=== PATIENT | female | born 1995 | race Caucasian/White ===

== ENCOUNTER 2018-12-19 20:40 | Emergency (ER) | payer BC ==
[~2018-12-19] VITALS: Ht 157.5 cm; Wt 58.5 kg
[2018-12-20] MEDS ORDERED: KETO10TA2 PO (02:37)
== END 2018-12-20 03:09 | disposition home or self-care (01) ==
LOC: ER 20:40
DX: N93.8 Other specified abnormal uterine and vaginal bleeding (principal)